=== PATIENT | male | born 1960 | race Hispanic/Latino ===

== ENCOUNTER 2017-01-22 10:17 | Inpatient (IN) | payer SELFPAY ==
[2017-01-22 10:28] VITALS: BMI 27.9
[2017-01-22] MEDS ORDERED: Sodium Chloride 0.9% 1,000 ML IV STA ×2 (10:39→11:51)
--- NOTE | 2017-01-22 10:45 | ED PDOC ---
HPI: General Adult Time Seen by Provider: 01/22/17 10:29 Chief Complaint (Nursing): Medical Clearance Chief Complaint (Provider): i have the hiccups History Per: Patient, Family History/Exam Limitations: no limitations Onset/Duration Of Symptoms: Days (6) Current Symptoms Are (Timing): Intermittent Episodes Severity: Mild Recently: Seen In ED [place] [place] Treated By A Physician Additional Complaint(s): 56yo male c/o hiccups for about 8 days, seen [facility] [place] last week and Rx reglan PO 10mg without improvement. Also had CXR prior to that demonstrating pneumonia and taking cipro 500mg BID for last 5-6 days. Denies fever, SOB, hemoptysis, does note some weight loss she believes from pneumonia? Had hiccups about 2 years ago and required "an injection" for resolution. Past Medical History Reviewed: Historical Data, Nursing Documentation, Vital Signs Vital Signs: Last Vital Signs Temp 97.6 F 01/22/17 10:26 Pulse 80 01/22/17 10:26 Resp 20 01/22/17 10:26 BP 156/89 H 01/22/17 10:26 Pulse Ox 97 01/22/17 10:47 - Medical History PMH: Pneumonia - Surgical History Surgical History: No Surg Hx - Living Arrangements Living Arrangements: With Family - Social History Current smoker - smoking cessation education provided: No - Allergies Allergies/Adverse Reactions: Allergies Allergy/AdvReac Type Severity Reaction Status Date / Time No Known Allergies Allergy Verified 01/22/17 10:36 Review of Systems ROS Statement: Except As Marked, All Systems Reviewed And Found Negative Constitutional: Negative for: Fever, Chills Cardiovascular: Negative for: Chest Pain, Palpitations Respiratory: Positive for: Other (hicccups). Negative for: Cough, Shortness of Breath Gastrointestinal: Negative for: Nausea, Vomiting, Abdominal Pain Genitourinary Male: Negative for: Dysuria, Frequency Musculoskeletal: Negative for: Neck Pain, Shoulder Pain, Back Pain Skin: Negative for: Rash, Lesions, Jaundice Neurological: Negative for: Weakness, Numbness, Headache Psych: Negative for: Depression Physical Exam - Reviewed Nursing Documentation Reviewed: Yes Vital Signs Reviewed: Yes - Physical Exam Appears: Positive for: Well, Non-toxic, No Acute Distress Head Exam: Positive for: ATRAUMATIC, NORMAL INSPECTION, NORMOCEPHALIC Skin: Positive for: Normal Color, Warm, DRY Eye Exam: Positive for: EOMI, Normal appearance, PERRL ENT: Positive for: Pharyngeal Erythema. Negative for: Tonsillar Swelling Neck: Positive for: Normal, Painless ROM Cardiovascular/Chest: Positive for: Regular Rate, Rhythm Respiratory: Positive for: Normal Breath Sounds. Negative for: Rhonchi, Respiratory Distress Gastrointestinal/Abdominal: Positive for: Soft Back: Positive for: Normal Inspection Extremity: Positive for: Normal ROM. Negative for: Deformity Neurologic/Psych: Positive for: Alert, Oriented, Gait (normal). Negative for: Motor/Sensory Deficits - Laboratory Results Result Diagrams: 01/22/17 10:47 01/22/17 10:47 - ECG O2 Sat by Pulse Oximetry: 97 Medical Decision Making Medical Decision Making: check basic labs r/o azotemia or other chemical cause hiccups. Check CXR to visualize pneumonia and concern for mass causing hiccups? CXR reveals L pneumonia. Labs reviewed, reveal marker hyperglycemia w mild azotemia. CT obtained r/o mass given persistent hiccups and abnormal CXR Accession No. : [id number] Patient Name / ID : LESTER GRANGER / [id number] Exam Date : 01/22/2017 12:28:55 ( Approved ) Study Comment : Sex / Age : M / 56Y Creator : Omid Caldwell MD Dictator : Omid Caldwell MD Suspension Cord Tier : Supervisor Smoke Control : Omid Caldwell MD Approver2 : Report Date : 01/22/2017 13:10:01 My Comment : PROCEDURE: CT Chest without contrast HISTORY: abnormal CXR, persistent hiccups COMPARISON: None. TECHNIQUE: Contiguous axial images were obtained through the chest without intravenous contrast enhancement. Sagittal and coronal reconstructions were performed. Radiation dose (DLP): 620.94 mGy-cm. This CT exam was performed using one or more of the following dose reduction techniques: Automated exposure control, adjustment of the mA and/or kV according to patient size, and/or use of iterative reconstruction technique. FINDINGS: LUNGS: Extensive left lower lobe infiltrate with air bronchograms. This alveolar process occupies superior and basilar segments of the left lower lobe. No evidence of mucous plugging or extrinsic impression on the bronchial segments. No evidence of interstitial lung disease. MEDIASTINUM: Unremarkable thoracic aorta. No aneurysm. Normal sized heart. Main pulmonary artery unremarkable. No vascular congestion. No lymphadenopathy. PLEURA: No pleural fluid. No pneumothorax. BONES: No fracture. No destructive lesion. Multilevel degenerative changes primarily disc space narrowing and non marginal osteophyte formation UPPER ABDOMEN: Grossly unremarkable. OTHER FINDINGS: Enlarged thyroid, calcified nodule left lobe, isthmus region measures 2.3 cm. Elective followup advised. IMPRESSION: 1. Extensive multi segment left lower lobe infiltrate compatible with acute pneumonia. 2. Enlarged left thyroid lobe with calcified mass. Elective ultrasound advised for further evaluation Given failure of outpatient therapy w PO antibiotics, admit for pneumonia w hyperglycemia. Pt informed of results including Disposition - Disposition Forms: [employer] (Mongolian)
[2017-01-22 11:07] LABS: BASO # 0.1 K/uL (0.0-0.2); BASO % 1.2 % (0.0-2.0); EOS # 0.2 K/uL (0.0-0.7); HEMATOCRIT 43.3 % (35.0-51.0); LYMPH # 1.2 K/uL (1.0-4.3); LYMPH % 14.2 % (20.0-40.0); MEAN CELL VOLUME 87.4 fl (80.0-94.0); MEAN CORPUSCULAR HEMOGLOBIN 29.1 pg (27.0-31.0); MEAN CORPUSCULAR HGB CONC 33.3 g/dL (33.0-37.0); MEAN PLATELET VOLUME 7.6 fl (7.2-11.7); MONO # 0.8 K/uL (0.0-0.8); MONO % 9.5 % (0.0-10.0); NEUT # 6.2 K/uL (1.8-7.0); NEUT % 73.1 % (50.0-75.0); RED CELL DISTRIBUTION WIDTH 13.7 % (11.5-14.5); WHITE BLOOD COUNT 8.4 K/uL (4.8-10.8)
[2017-01-22 11:24] LABS: AST/SGOT 37 U/L (17-59); BLOOD UREA NITROGEN 28 mg/dl (9-20); CARBON DIOXIDE 27 mmol/L (22-30); GFR AFRICAN-AMERICAN > 60; SODIUM 132 mmol/l (132-148); TOTAL PROTEIN 7.1 G/DL (6.3-8.2)
[2017-01-22 11:26] LABS: BILIRUBIN,TOTAL 0.7 mg/dl (0.2-1.3)
[2017-01-22 11:43] LABS: ALKALINE PHOSPHATASE 222 U/L (38-126); ALT/SGPT 37 U/L (21-72); CALCIUM 9.1 mg/dL (8.4-10.2); CHLORIDE 96 mmol/L (98-107)
[2017-01-22 11:51] LABS: GLUCOSE,RANDOM 453 mg/dL (75-110); POTASSIUM 5.4 MMOL/L (3.6-5.0)
[2017-01-22] MEDS ORDERED: Insulin Regular 100 units/ml IVP ONE (11:51)
--- NOTE | 2017-01-22 12:54 | RAD ---
HISTORY: hiccups, recent pneumonia COMPARISON: January 22, 2017. CT thorax reported separately TECHNIQUE: Chest PA and lateral FINDINGS: LUNGS: Left lower lobe infiltrate likely reflective of pneumonia. PLEURA: No significant pleural effusion identified. No pneumothorax apparent. CARDIOVASCULAR: Normal. OSSEOUS STRUCTURES: No significant abnormalities. VISUALIZED UPPER ABDOMEN: Normal. OTHER FINDINGS: None. IMPRESSION: Left lower lobe infiltrate suspicious for pneumonia.
--- NOTE | 2017-01-22 13:12 | CT ---
PROCEDURE: CT Chest without contrast HISTORY: abnormal CXR, persistent hiccups COMPARISON: None. TECHNIQUE: Contiguous axial images were obtained through the chest without intravenous contrast enhancement. Sagittal and coronal reconstructions were performed. Radiation dose (DLP): 620.94 mGy-cm. This CT exam was performed using one or more of the following dose reduction techniques: Automated exposure control, adjustment of the mA and/or kV according to patient size, and/or use of iterative reconstruction technique. FINDINGS: LUNGS: Extensive left lower lobe infiltrate with air bronchograms. This alveolar process occupies superior and basilar segments of the left lower lobe. No evidence of mucous plugging or extrinsic impression on the bronchial segments. No evidence of interstitial lung disease. MEDIASTINUM: Unremarkable thoracic aorta. No aneurysm. Normal sized heart. Main pulmonary artery unremarkable. No vascular congestion. No lymphadenopathy. PLEURA: No pleural fluid. No pneumothorax. BONES: No fracture. No destructive lesion. Multilevel degenerative changes primarily disc space narrowing and non marginal osteophyte formation UPPER ABDOMEN: Grossly unremarkable. OTHER FINDINGS: Enlarged thyroid, calcified nodule left lobe, isthmus region measures 2.3 cm. Elective followup advised. IMPRESSION: 1. Extensive multi segment left lower lobe infiltrate compatible with acute pneumonia. 2. Enlarged left thyroid lobe with calcified mass. Elective ultrasound advised for further evaluation
[2017-01-22] MEDS ORDERED: Azithromycin 500 MG in Sodium Chloride 0.9% 250 ML IVPB STA (13:31)
[2017-01-22] MEDS ORDERED: Sodium Chloride 3% for Inhalation 4 ML VIAL.NEB IH PRN (13:41)
--- NOTE | 2017-01-22 15:56 | CP.PCM.HP ---
History of Present Illness - History of Present Illness History of Present Illness: This is a 56 year old male with a past medical history of Type 2 diabetes mellitus, who presents to the [facility] emergency department with the complaint of singultus, which has been present for the last 8 days. The patient states that his hiccups have been increasing in frequency and often waking him up from sleep at night. He states that last week he went [place] [facility] [place] a CX[place] showing pneumonia for which he has been taking ciprofloxacin as an outpatient for the last 6 days. The patient says prior to antibiotics he had fever and chills, however this has improved somewhat. He denies any hemoptysis. His , Heavenly, who is at bedside (and is his surrogate decision maker), is at bedside and relates that he had hiccups 2 years ago and had an injection which improved his hiccups. In the ED, the patient's vitals were stable. He was noted on labwork to have an elevated blood glucose of 453; however with a non-anion gap acidosis. He has a potassium of 5.4, chlorid of 96, BUN of 28 but normal creatinine of 0.9 and GFR > 60. Alkaline phosphatase is 222. A CXR and CT scan of the chest without contrast were performed. Imaging reveals an enlarged thyroid with a calcified nodule of the left lobe, isthmus region measuring 2.3 centimeters. It also showed an extensive multi segment left lower lobe infiltrate compatible with acute pneumonia. Given the patient's findings, he is to be admitted for management of extensive left lower lobe community acquired pneumonia along with further workup of his thyroid enlargement with calcified nodule. Patient denies chest pain, fevers, chills, nausea, vomiting, diarrhea, headache. Rest of ROS as below. All of the patient's and/or family's questions were answered at the bedside. Present on Admission - Present on Admission Any Indicators Present on Admission: Yes History of DVT/PE: No History of Uncontrolled Diabetes: Yes Urinary Catheter: No Decubitus Ulcer Present: No Review of Systems - Constitutional Constitutional: Daytime Sleepiness, Fatigue. absent: Increased Appetite, Malaise, Night Sweats - Cardiovascular Cardiovascular: absent: Chest Pain, Chest Pain at Rest, Chest Pain with Activity , Claudication - Respiratory Respiratory: Cough. absent: Dyspnea on Exertion, Wheezing, Chest Congestion, Excessive Mucous Production - Gastrointestinal Gastrointestinal: absent: Abdominal Pain, Belching, Dyspepsia, Fecal Incontinence - Musculoskeletal Musculoskeletal: absent: Abnormal Gait, Arthralgias, Atrophy, Joint Swelling, Muscle Weakness - Integumentary Integumentary: absent: Acne, Changing Lesions, Dry Skin, Hirsutism, Lesions - Neurological Neurological: absent: Confusion, Disequilibrium, Dizziness, Numbness, Focal Weakness - Psychiatric Psychiatric: absent: Abnormal Sleep Pattern, Auditory Hallucinations, Behavioral Changes, Confusion, Depression - Endocrine Endocrine: absent: Change in Body Appearance, Change in Libido, Deepening of Voice, Excessive Sweating Past Patient History - Infectious Disease Hx of Infectious Diseases: None - Past Medical History & Family History Past Medical History?: Yes Pertinent Family History: Father has history of diabetes mellitus type 2. No history of CVA, heart disease , or [place] in immediate family - Past Social History Smoking Status: Never Smoked Alcohol: None - PULMONARY Hx Pneumonia: Yes - ENDOCRINE/METABOLIC Hx Diabetes Mellitus Type 2: Yes - PSYCHIATRIC Hx Substance Use: No - SURGICAL HISTORY Hx Surgeries: No - ANESTHESIA Hx Anesthesia: No Meds Allergies/Adverse Reactions: Allergies Allergy/AdvReac Type Severity Reaction Status Date / Time No Known Allergies Allergy Verified 01/22/17 10:36 Physical Exam - Constitutional Appears: Well, Non-toxic, No Acute Distress - Head Exam Head Exam: ATRAUMATIC, NORMAL INSPECTION, NORMOCEPHALIC - ENT Exam ENT Exam: Mucous Membranes Moist, Normal Exam - Neck Exam Neck exam: Positive for: Normal Inspection - Respiratory Exam Respiratory Exam: Clear to Auscultation Bilateral, NORMAL BREATHING PATTERN - Cardiovascular Exam Cardiovascular Exam: REGULAR RHYTHM, +S1, +S2 - GI/Abdominal Exam GI & Abdominal Exam: Normal Bowel Sounds, Soft. absent: Mass, Organomegaly, Rebound, Rigid - Back Exam Back exam: NORMAL INSPECTION - Neurological Exam Neurological exam: Alert, CN II-XII Intact, Normal Gait, Oriented x3, Reflexes Normal - Psychiatric Exam Psychiatric exam: Normal Affect, Normal Mood - Skin Skin Exam: Dry, Intact, Normal Color, Warm Results - Vital Signs Recent Vital Signs: Last Vital Signs Temp 97.6 F 01/22/17 10:26 Pulse 80 01/22/17 10:26 Resp 20 01/22/17 10:26 BP 156/89 H 01/22/17 10:26 Pulse Ox 97 01/22/17 13:36 - Labs Result Diagrams: 01/22/17 10:47 01/22/17 10:47 - Impressions Impression: Normal sinus rhythm, rate of 66 bpm, no acute ST or T-wave changes, left axis deviation. Assessment & Plan - Assessment and Plan (Free Text) Assessment: ASSESSEMENT/PLAN 1) Left lower lobe extensive pneumonia, failed outpatient therapy - Admit to med/surg - IV Azithromycin/Rocephin in ED, will continue for empiric coverage of community acquired pneumonia - Tylenol PRN for fever - 2) Diabetes mellitus, type 2, uncontrolled - Patient has not been followed up or had diabetic medications in >1 year - HGA1C - Lipid profile - Initiate Lispro sliding scale coverage; will add increasing coverage as necessary and will consider endocrinology consultation if unable to control - IV fluids, continue NS at 125 cc/hour 3) Thyroid nodule - Check TSH, free T4 - Thyroid US - Consider IR consultation for fine needle aspiration and biopsy if thyroid US shows suspicious features for neoplasm 3) Singultus - Etiology related to either pneumonia versus thyroid nodule, more likely pneumonia - Reglan 10 mg IV q6h PRN for hiccups - Should likely resolve with treatment of pneumonia 4) Hyperkalemia - Secondary to dehydration along with hyperglycemia - IV fluids as above with expected resolution 5) DVT prophylaxis - Lovenox 40 mg SC daily Estimated length of stay greater than 2 midnights - Date & Time Date: 01/22/17 Time: 15:30
[2017-01-22] MEDS ORDERED: cefTRIAXone (Rocephin) 1 gm Inj ONE (16:40)
[2017-01-22] MEDS: Sodium Chloride 0.9% 1,000 ML IV SCH (16:51)
[2017-01-22] MEDS ORDERED: Azithromycin 500 MG IV IVPB ONE (16:51)
[2017-01-22] MEDS ORDERED: Pneumococcal 23-Valent Vaccine IM ONE (18:09)
[2017-01-22] MEDS: Insulin Lispro (humaLOG) 100 Units/ml Inj SC SCH ×2 (18:35→22:30)
[2017-01-23] MEDS: Sodium Chloride 0.9% 1,000 ML IV SCH ×3 (03:22→14:34)
[2017-01-23 06:56] LABS: HEMATOCRIT 40.8 % (35.0-51.0); MEAN CELL VOLUME 87.3 fl (80.0-94.0); MEAN CORPUSCULAR HEMOGLOBIN 29.4 pg (27.0-31.0); MEAN CORPUSCULAR HGB CONC 33.7 g/dL (33.0-37.0); RED CELL DISTRIBUTION WIDTH 13.7 % (11.5-14.5); WHITE BLOOD COUNT 9.5 K/uL (4.8-10.8)
[2017-01-23 07:06] LABS: BLOOD UREA NITROGEN 20 mg/dl (9-20); CALCIUM 8.6 mg/dL (8.4-10.2); CARBON DIOXIDE 22 mmol/L (22-30); CHLORIDE 103 mmol/L (98-107); GFR AFRICAN-AMERICAN > 60; GLUCOSE,RANDOM 241 mg/dL (75-110); POTASSIUM 4.5 MMOL/L (3.6-5.0); SODIUM 136 mmol/l (132-148)
[2017-01-23] MEDS: Enoxaparin 40 mg Syringe SC SCH (08:36)
[2017-01-23] MEDS: Insulin Lispro (humaLOG) 100 Units/ml Inj SC SCH ×4 (08:37→21:21)
[2017-01-23] MEDS: Azithromycin 500 MG in Sodium Chloride 0.9% 250 ML IVPB SCH (08:40)
--- NOTE | 2017-01-23 08:59 | CARD ---
APPROVED REPORT EKG Measurement Heart [id number] <Conclusion> Normal sinus rhythm Left axis deviation Abnormal ECG
[2017-01-23 10:35] LABS: CHOLESTEROL 167 mg/dL (0-199)
--- NOTE | 2017-01-23 11:57 | US ---
HISTORY: thyroid mass on CT scan TECHNIQUE: Sonographic evaluation of the thyroid gland. COMPARISON: 01/22/2017. CT thorax FINDINGS: RIGHT LOBE: Measures 1.4 x 2.4 x 6 cm. Homogeneous echotexture, normal vascularity Nodules: None LEFT LOBE: Measures 1.7 x 2.5 x 6.9 cm. Homogeneous echotexture, normal vascularity. Nodules: Solid lower pole well-circumscribed isoechoic nodule 2.7 x 2.8 x 3.2 cm. This corresponds to the finding on recent CT scan. Cystic nodule upper pole 2 x 3 x 3 mm. ISTHMUS: Measures 0.67 cm. Nodules: None OTHER FINDINGS: None . IMPRESSION: Dominant solid hypervascular nodule lower pole left lobe corresponding findings on recent CT scan. Recommendations for follow-up: 1. Radionuclide Scan to assess Thyroid function and to evaluate the thyroid for the presence of hot or cold nodules. 2. Fine needle aspiration (FNA) should also be considered as an invasive diagnostic tool in the assessment of findings described above.
--- NOTE | 2017-01-23 18:20 | CP.PCM.PN ---
Subjective - Date & Time of Evaluation Date of Evaluation: 01/23/17 Time of Evaluation: 15:00 - Subjective Subjective: Patient states that he is feeling better. Denies any pain, sob, fever, cp, or weakness overnight. I explained to him the significance of getting his blood sugar under control and requiring close follow up due to his diabetes. No c/o noted by nursing staff overnight. Objective - Vital Signs/Intake and Output Vital Signs (last 24 hours): Temp Pulse Resp BP Pulse Ox 97.7 F 66 20 150/83 96 01/23/17 16:25 01/23/17 16:25 01/23/17 16:25 01/23/17 16:25 01/23/17 16:25 - Medications Medications: Current Medications Acetaminophen (Tylenol 325mg Tab) 650 mg PO Q6 PRN PRN Reason: Fever >100.4 F Enoxaparin Sodium (Lovenox) 40 mg SC DAILY [facility] PRN Reason: Protocol Last Admin: 01/23/17 08:36 Dose: 40 mg Glipizide (Glucotrol) 5 mg PO BID [facility] Last Admin: 01/23/17 17:01 Dose: 5 mg Sodium Chloride (Sodium Chloride 0.9%) 1,000 mls @ 125 mls/hr IV .Q8H [facility] Last Admin: 01/23/17 14:34 Dose: 125 mls/hr Azithromycin 500 mg/ Sodium (Chloride) 250 mls @ 250 mls/hr IVPB DAILY [facility] Last Admin: 01/23/17 08:40 Dose: 250 mls/hr Ceftriaxone Sodium 1 gm/ (Sodium Chloride) 100 mls @ 100 mls/hr IVPB DAILY [facility] Last Admin: 01/23/17 08:40 Dose: 100 mls/hr Ibuprofen (Motrin Tab) 600 mg PO Q8H PRN PRN Reason: Pain, moderate (4-7) Insulin Human Lispro (Humalog) 0 units SC ACHS [facility] PRN Reason: Protocol Last Admin: 01/23/17 17:02 Dose: 3 u Lisinopril (Zestril) 20 mg PO DAILY [facility] Last Admin: 01/23/17 10:27 Dose: 20 mg Metformin HCl (Glucophage) 500 mg PO BIDWM [facility] Last Admin: 01/23/17 17:01 Dose: 500 mg Metoclopramide HCl (Reglan) 10 mg IVP Q6 PRN PRN Reason: Hiccups Last Admin: 01/23/17 14:36 Dose: 10 mg - Labs Labs: 01/23/17 06:00 01/23/17 06:00 - Additional Findings Additional findings: - Constitutional Appears: Well, Non-toxic, No Acute Distress - Head Exam Head Exam: ATRAUMATIC, NORMAL INSPECTION, NORMOCEPHALIC - ENT Exam ENT Exam: Mucous Membranes Moist, Normal Exam - Neck Exam Neck exam: Positive for: Normal Inspection - Respiratory Exam Respiratory Exam: Clear to Auscultation Bilateral, NORMAL BREATHING PATTERN - Cardiovascular Exam Cardiovascular Exam: REGULAR RHYTHM, +S1, +S2 - GI/Abdominal Exam GI & Abdominal Exam: Normal Bowel Sounds, Soft. absent: Mass, Organomegaly, Rebound, Rigid - Back Exam Back exam: NORMAL INSPECTION - Neurological Exam Neurological exam: Alert, CN II-XII Intact, Normal Gait, Oriented x3, Reflexes Normal - Psychiatric Exam Psychiatric exam: Normal Affect, Normal Mood - Skin Skin Exam: Dry, Intact, Normal Color, Warm Assessment and Plan - Assessment and Plan (Free Text) Plan: ASSESSMENT/PLAN 1) Left lower lobe extensive pneumonia, failed outpatient therapy - Symptoms improving - IV Azithromycin/Rocephin in ED, will continue for empiric coverage of community acquired pneumonia - Tylenol PRN for fever 2) Diabetes mellitus, type 2, uncontrolled - Endocine consultation with Dr. Aguila appreciated - Patient has not been followed up or had diabetic medications in >1 year - HGA1C pending - Continue insulin sliding scale - Added glipizide, metformin today as per endocrine - IV fluids, continue NS at 125 cc/hour 3) Thyroid nodule, toxic adenoma? - Dr. Aguila consultation - TSH low, free T4 elevated, indicating hyperthyroidism - Thyroid US shows a dominant solid hypervascular nodule of the lower pole left lobe - Consider IR consultation for fine needle aspiration and biopsy and/or radionuclide scan- will follow up with endocrine recommendations 3) Singultus - Etiology related to either pneumonia versus thyroid nodule, more likely pneumonia - Reglan 10 mg IV q6h PRN for hiccups - Should likely resolve with treatment of pneumonia 4) Hyperkalemia- resolved with IV fluids - Continue to monitor 5) DVT prophylaxis - Lovenox 40 mg SC daily
[2017-01-24 07:31] VITALS: BP 139/78; PULSE 74; RESP 18; TEMP 97.6; O2SAT 95
[2017-01-24] MEDS: Insulin Lispro (humaLOG) 100 Units/ml Inj SC SCH ×2 (08:00→12:43)
--- NOTE | 2017-01-24 08:45 | CON ---
ENDOCRINOLOGY CONSULTATION DATE: LOCATION: Room #663. HISTORY OF PRESENT ILLNESS: This is a 56-year-old male with known history of type 2 diabetes, presenting here with progressively worsening hiccups and also evaluated to have an acute pneumonitis and started on IV antibiotic management as given. He is being referred now also for endocrine evaluation because of marked hyperglycemic acceleration and also because of an incidental finding of an enlarged thyroid with calcified nodules in the left lobe as noted thereof. PAST MEDICAL HISTORY: As mentioned above. History of type 2 diabetes and has been off his oral hypoglycemic drug therapy as noted with no recent medical followup with his primary physician, history of hypertensive cardiovascular disease and dyslipidemia. FAMILY HISTORY: Positive for diabetes and hypertension. SOCIAL HISTORY: The patient has supportive family. No known substance use. REVIEW OF SYSTEMS: Admits with generalized body weakness with easy fatigability and tiredness and suboptimal energy level. Also admits episodic dizziness and lightheadedness with increased lethargy and somnolence over the past week or so prior to admission. No chest pains or palpitations, but admits to productive cough and pleuritic chest pain as noted. His oral intake is variable with nausea and dyspepsia and persistent polyuria and nocturia. He denies any odynophagia and dysphagia at this time. PHYSICAL EXAMINATION GENERAL: This is an average-built male, in no apparent distress. VITAL SIGNS: Blood pressure of 140/70, pulse 70 beats per minute regular, temperature 98, respiration is 20, height is 5 feet 10 inches, weight is 195 pounds. HEENT: Head normocephalic. Eyes anicteric with pink conjunctivae. Funduscopy not possible at this time. Ears, nose, and throat otherwise normal. NECK: The neck shows nodular thyromegaly, which is firm and nontender with palpable nodule in the left lobe as noted. CARDIOPULMONARY: Adynamic precordium. S1 and S1 is rapid and regular. LUNGS: Clear to auscultation. ABDOMEN: Flat and soft with positive bowel sounds. EXTREMITIES: No peripheral edema. Pulses are +2 bilaterally. ASSESSMENT: This is a 56-year-old male with uncontrolled and decompensated type 2 diabetes with poor adherence to oral hypoglycemic therapy, presenting here with hyperglycemic accelerations as expected thereof. More over, he also has an acute pneumonitis, currently undergoing IV antibiotic management therapy as given. He also has some incidental finding of a multinodular goiter with a dominant nodule as noted in the left lobe. His ultrasound actually confirmed the presence of bilaterally enlarged thyroid lobes with the right lobe measuring 6 x 2.4 cm, on the left lobe measuring 6.9 x 1.7 cm. This resulted nodule in the left lobe measuring 3.2 x 2.7 and 2.8 cm as noted. PLAN OF MANAGEMENT: We will obtain a comprehensive thyroid hormonal profile to include a T4, TSH, and also thyroid antibodies with a thyroid peroxidase antibody and a thyroglobulin antibody with a quantitative thyroglobulin level to confirm and/or indicate the presence of underlying thyroid autoimmunity. We also modify current oral hypoglycemic regimen and give him a combination of metformin given as 500 mg b.i.d. and glipizide given as 10 mg b.i.d. before meals as ordered. We will obtain serial chemistries, supplement accordingly as needed. We will actually consider the possibility of having a five needle aspiration biopsy of the nodule, which could be done either inpatient or outpatient depending on the availability of the interventional radiologist in the hospital. We will follow and advise accordingly. Maryuri Aguila MD
[2017-01-24] MEDS: Enoxaparin 40 mg Syringe SC SCH (09:28)
[2017-01-24] MEDS: Azithromycin 500 MG in Sodium Chloride 0.9% 250 ML IVPB SCH (09:31)
--- NOTE | 2017-01-24 09:40 | CP.PCM.PN ---
Objective - Vital Signs/Intake and Output Vital Signs (last 24 hours): Temp Pulse Resp BP Pulse Ox 97.6 F 74 18 139/78 95 01/24/17 07:31 01/24/17 09:30 01/24/17 07:31 01/24/17 09:30 01/24/17 07:31 - Medications Medications: Current Medications Acetaminophen (Tylenol 325mg Tab) 650 mg PO Q6 PRN PRN Reason: Fever >100.4 F Enoxaparin Sodium (Lovenox) 40 mg SC DAILY [facility] PRN Reason: Protocol Last Admin: 01/24/17 09:28 Dose: 40 mg Glipizide (Glucotrol) 5 mg PO BID [facility] Last Admin: 01/24/17 09:26 Dose: 5 mg Azithromycin 500 mg/ Sodium (Chloride) 250 mls @ 250 mls/hr IVPB DAILY [facility] Last Admin: 01/24/17 09:31 Dose: 250 mls/hr Ceftriaxone Sodium 1 gm/ (Sodium Chloride) 100 mls @ 100 mls/hr IVPB DAILY [facility] Last Admin: 01/24/17 09:29 Dose: 100 mls/hr Ibuprofen (Motrin Tab) 600 mg PO Q8H PRN PRN Reason: Pain, moderate (4-7) Insulin Human Lispro (Humalog) 0 units SC ACHS [facility] PRN Reason: Protocol Last Admin: 01/24/17 08:00 Dose: 3 u Lisinopril (Zestril) 20 mg PO DAILY [facility] Last Admin: 01/24/17 09:30 Dose: 20 mg Metformin HCl (Glucophage) 500 mg PO BIDWM [facility] Last Admin: 01/24/17 09:26 Dose: 500 mg Metoclopramide HCl (Reglan) 10 mg IVP Q6 PRN PRN Reason: Hiccups Last Admin: 01/23/17 21:18 Dose: 10 mg - Labs Labs: 01/23/17 06:00 01/23/17 06:00
[2017-01-24] MEDS ORDERED: methIMAzole 5 MG TAB PO SCH (14:15)
--- NOTE | 2017-01-24 14:40 | CP.PCM.DIS ---
Provider - Provider Date of Admission: 01/22/17 13:39 Attending physician: Brant Rm DO Primary care physician: None Consults: endo consult Time Spent in preparation of Discharge (in minutes): 20 Hospital Course - Lab Results Lab Results: Micro Results 01/22/17 16:20 Blood-Venous Blood Culture - Preliminary NO GROWTH AFTER 24 HOURS 01/22/17 16:05 Blood-Venous Blood Culture - Preliminary NO GROWTH AFTER 24 HOURS Most Recent Lab Values WBC 9.5 K/uL (4.8-10.8) 01/23/17 06:00 RBC 4.68 Mil/uL (4.40-5.90) 01/23/17 06:00 Hgb 13.8 g/dL (12.0-18.0) 01/23/17 06:00 Hct 40.8 % (35.0-51.0) 01/23/17 06:00 MCV 87.3 fl (80.0-94.0) 01/23/17 06:00 MCH 29.4 pg (27.0-31.0) 01/23/17 06:00 MCHC 33.7 g/dL (33.0-37.0) 01/23/17 06:00 RDW 13.7 % (11.5-14.5) 01/23/17 06:00 Plt Count 333 K/uL (130-400) 01/23/17 06:00 MPV 7.6 fl (7.2-11.7) 01/22/17 10:47 Neut % (Auto) 73.1 % (50.0-75.0) 01/22/17 10:47 Lymph % (Auto) 14.2 % (20.0-40.0) L 01/22/17 10:47 [place] % (Auto) 9.5 % (0.0-10.0) 01/22/17 10:47 Eos % (Auto) 2.0 % (0.0-4.0) 01/22/17 10:47 Baso % (Auto) 1.2 % (0.0-2.0) 01/22/17 10:47 Neut # 6.2 K/uL (1.8-7.0) 01/22/17 10:47 Lymph # 1.2 K/uL (1.0-4.3) 01/22/17 10:47 [place] # 0.8 K/uL (0.0-0.8) 01/22/17 10:47 Eos # 0.2 K/uL (0.0-0.7) 01/22/17 10:47 Baso # 0.1 K/uL (0.0-0.2) 01/22/17 10:47 Sodium 136 mmol/l (132-148) 01/23/17 06:00 Potassium 4.5 MMOL/L (3.6-5.0) 01/23/17 06:00 Chloride 103 mmol/L (98-107) 01/23/17 06:00 Carbon Dioxide 22 mmol/L (22-30) 01/23/17 06:00 Anion Gap 15 (10-20) 01/23/17 06:00 BUN 20 mg/dl (9-20) 01/23/17 06:00 Creatinine 0.8 mg/dL (0.8-1.5) 01/23/17 06:00 Est GFR ( Amer) > 60 01/23/17 06:00 Est GFR (Non-Af Amer) > 60 01/23/17 06:00 POC Glucose (mg/dL) 222 mg/dL (65-110) H 01/24/17 06:19 Random Glucose 241 mg/dL (75-110) H 01/23/17 06:00 Hemoglobin A1c 13.8 % (4.2-6.5) H 01/23/17 16:50 Calcium 8.6 mg/dL (8.4-10.2) 01/23/17 06:00 Total Bilirubin 0.7 mg/dl (0.2-1.3) 01/22/17 10:47 AST 37 U/L (17-59) 01/22/17 10:47 ALT 37 U/L (21-72) 01/22/17 10:47 Alkaline Phosphatase 222 U/L (38-126) H 01/22/17 10:47 Total Protein 7.1 G/DL (6.3-8.2) 01/22/17 10:47 Albumin 3.5 g/dL (3.5-5.0) 01/22/17 10:47 Globulin 3.5 gm/dL (2.2-3.9) 01/22/17 10:47 Albumin/Globulin Ratio 1.0 (1.0-2.1) 01/22/17 10:47 Triglycerides 264 mg/DL (0-149) H 01/23/17 06:00 Cholesterol 167 mg/dL (0-199) 01/23/17 06:00 LDL Cholesterol Direct 93 mg/dL (0-129) 01/23/17 06:00 HDL Cholesterol 16 MG/DL (30-70) L 01/23/17 06:00 Free T4 2.39 ng/dL (0.78-2.19) H 01/23/17 16:28 Thyroxine (T4) 12.1 ug/dl (5.5-11.0) H 01/24/17 08:50 TSH 3rd Generation 0.10 mIU/ML (0.46-4.68) L 01/23/17 16:28 - Hospital Course Hospital Course: 56 year old male with a past medical history of Type 2 diabetes mellitus not compliant with medication, presented to [facility] emergency department with the complaint of intractable hiccups for the last 8 days.As per patient his hiccups have been increasing in frequency and often waking him up from sleep at night. He states that last week he went to an urgent care at [facility] and had a CXR showing pneumonia for which he has been taking ciprofloxacin as an outpatient for the last 6 days. The patient says prior to antibiotics he had fever and chills, however this has improved somewhat. He denies any hemoptysis. In the ED, the patient's vitals were stable. He was noted to have an elevated blood glucose of 453; however with a non-anion gap acidosis. A CXR and CT scan of the chest without contrast were performed showing extensive multi segment LLL pneumonia. Imaging also revealed an enlarged thyroid with a calcified nodule of the left lobe, isthmus region measuring 2.3 centimeters. Patient was admitted to med/surg for CAP and uncontrolled DM and started on IV rocephin and Zithromax , IVF, insulin ACHS . Endocrinology was consulted . serial chemistries were ordered as well as TSH, T3 t4 and thyroid peroxidase Ab , thyroglobulin panel. He was started on Metformin 500 mg po BID , Glipizide 10 mg po BID for DM and provided diabetic education and counselling on compliance with medications.His hgbA1c reported as 13 , TSH 0.1 T4 13. He was strated on Methimazole 5 mg PO daily for early hyperthyroidism . Informed patient and on Thyroid Us findings and need for fine needle aspiration biopsy as out patient and prescription provided. He was treated with reglan IV for his intractable hiccups with improvement. Clinically patient is doing well, hemodynamically stable, afebrile will discharge patient home with prescriptions. Recommended to [facility] in 1-2 weeks. repeta thyroid tests in 3 weeks, Fine needle aspiration biopsy of thyroid nodule as out patient. 1.Left lower lobe extensive pneumonia [facility]in [facility] will d/c on Levaquine Po for 7 days 2.Diabetes mellitus, type 2, uncontrolled - Endocrine consultation with Dr. Aguila appreciated - Patient has not been followed up or had diabetic medications in >1 year - HGA1C 13 started Glipizide 10 mg po bid and metformin 500 mg po bid counselled 3. Thyroid nodule, toxic adenoma? Dr. Aguila consultation appreciated TSH 0.1 T4 13 Thyroid US shows a dominant solid hypervascular nodule of the lower pole left lobe Will need IR consultation for fine needle aspiration and biopsy Started methimazole for hyperthyroidism 4. Hyperthyroidism Started Methimazole 5 mg po daily need repeat TSH, T3, t4 in 2-3 weeks 5. Intractable hiccups Treated with reglan PRN 6. Hyperkalemia- resolved Discharge Exam - Head Exam Head Exam: ATRAUMATIC, NORMAL INSPECTION, NORMOCEPHALIC - Eye Exam Eye Exam: EOMI, Normal appearance, PERRL Pupil Exam: NORMAL ACCOMODATION - ENT Exam ENT Exam: Mucous Membranes Moist, Normal Exam - Neck Exam Neck exam: Full Rom, Normal Inspection - Respiratory Exam Respiratory Exam: Clear to PA & Lateral, NORMAL BREATHING PATTERN. absent: Rales, Rhonchi, Wheezes - Cardiovascular Exam Cardiovascular Exam: REGULAR RHYTHM, RRR, +S1, +S2. absent: JVD - GI/Abdominal Exam GI & Abdominal Exam: Normal Bowel Sounds, Soft. absent: Distended, Guarding, Rebound, Tenderness - Rectal Exam Rectal Exam: Deferred - Extremities Exam Extremities exam: normal capillary refill, normal inspection, pedal pulses present - Back Exam Back exam: NORMAL INSPECTION - Neurological Exam Neurological exam: Alert, CN II-XII Intact, Oriented x3, Reflexes Normal - Psychiatric Exam Psychiatric exam: Normal Affect, Normal Mood - Skin Skin Exam: Dry, Intact, Normal Color, Warm Discharge Plan - Discharge Medications Prescriptions: GlipiZIDE [Glucotrol] 10 mg PO BID #60 tab Levofloxacin [Levaquin] 750 mg PO DAILY #7 tablet Lisinopril [Zestril] 20 mg PO DAILY #30 tab metFORMIN [glucOPHAGE] 500 mg PO BIDWM #60 tab methIMAzole [Tapazole] 5 mg PO DAILY #30 tab Metoclopramide [Reglan] 10 mg PO TID #20 - Follow Up Plan Condition: GOOD Disposition: HOME/ ROUTINE Patient education suggested?: Yes Instructions: Hyperthyroidism (DC), Diabetes Mellitus Type 2 in Adults (DC), Thyroid Nodules (DC), Pneumonia (DC), Diabetic Hyperglycemia (DC) Additional Instructions: Fine needle aspiration biopsy of thyroid nodule Referrals: [facility] [Outside]
== END 2017-01-24 16:00 | disposition home or self-care (01) | DRG 194 ==
LOC: H.ER 10:17 → H.ERHOLD 13:39 → H.MEDSURG1 17:27
PROVIDERS: ADMIT Internal Medicine; ATTEND Internal Medicine
PROC: 3E0234Z Introduction of Serum, Toxoid and Vaccine into Muscle, Percutaneous Approach (ICD-10-PCS; principal; 2017-01-23)
DX: J18.9 Pneumonia, unspecified organism (principal); E87.2 Acidosis; E11.65 Type 2 diabetes mellitus with hyperglycemia; E87.5 Hyperkalemia; E86.0 Dehydration; Z91.14 Patient's other noncompliance with medication regimen; Z23 Encounter for immunization; E05.20 Thyrotoxicosis with toxic multinodular goiter without thyrotoxic crisis or storm; R06.6 Hiccough